=== PATIENT | male | born 1950 | race Caucasian/White ===

== ENCOUNTER 2018-11-24 19:32 | Inpatient (IN) | payer MEDICAID ==
[~2018-11-24] VITALS: Ht 167.6 cm; Wt 71.2 kg
[2018-11-24] MEDS ORDERED: TENORMIN100 MG ORAL (19:56)
[2018-11-24] MEDS ORDERED: MONTELUKAST SOD10 MG ORAL (19:56)
[2018-11-24] MEDS ORDERED: RISPERIDONE0.5 MG PO (19:56)
[2018-11-24] MEDS ORDERED: DOCUSATE SODIU100 M2 ORAL (19:56)
[2018-11-24] MEDS ORDERED: LACTULOSE20 GM/301 ORAL (19:56)
[2018-11-24] MEDS ORDERED: ASPIRIN-LOW81 MG ORAL (19:56)
[2018-11-24] MEDS ORDERED: MILK OF MA2400 MG/10 ORAL (19:56)
[2018-11-24] MEDS ORDERED: NEURONTIN300 MG ORAL (19:56)
[2018-11-24] MEDS ORDERED: OYSTER SHELL 51 EAC2 PO (19:56)
[2018-11-24] MEDS ORDERED: FLOMAX0.4 MG ORAL (19:56)
[2018-11-24] MEDS ORDERED: ZYPREXA7.5 MG ORAL (19:56)
[2018-11-24] MEDS ORDERED: PEPCID AC20 M2 PO (19:56)
[2018-11-24] MEDS ORDERED: ATIVAN4 MG/1 ML IJ (19:56)
[2018-11-24] MEDS ORDERED: REMERON15 M1 ORAL (19:56)
--- NOTE | 2018-11-24 20:00 | NUR ---
ED Nurse Note: RECIEVED PT BIBA FROM SNF WITH C/O ANORAL LABS, PT HAD LABS DONE LAST WEEK AND HAS ELEVATED POTASSIUM LEVEL, PT IS ASYMPTOMATIC, AWAKE, ALERT AND ORIENTED, DENEIS PAIN, IS CALM AND COOPERTIVE, IMEDIATELY PLACED ON CARDIAC MONITORING, IV LINE AND LABS DRAWN, WILL RESUME CARE ORDERED AND CLOSELY MONITOR.
[2018-11-24 20:02] LABS: BASOPHILS % (AUTO) 0.9 % (0.0-2.0); EOSINOPHILS % (AUTO) 1.2 % (0.0-3.0); HEMATOCRIT 37.3 % (42.0-52.0); HEMOGLOBIN 13.2 G/DL (14.2-18.0); LYMPHOCYTES % (AUTO) 12.8 % (20.0-45.0); MEAN CORPUSCULAR VOLUME 84 FL (80-99); MONOCYTES % (AUTO) 8.1 % (1.0-10.0); NEUTROPHILS % (AUTO) 77.1 % (45.0-75.0); PLATELET COUNT 265 K/UL (150-450); RED BLOOD COUNT 4.46 M/UL (4.70-6.10); RED CELL DISTRIBUTION WIDTH 12.2 % (11.6-14.8); WHITE BLOOD COUNT 11.6 K/UL (4.8-10.8)
[2018-11-24 20:15] VITALS: BP 139/76
[2018-11-24 20:21] LABS: ANION GAP 9 mmol/L (5-15); BLOOD UREA NITROGEN 23 mg/dL (7-18); CALCIUM 9.2 MG/DL (8.5-10.1); CARBON DIOXIDE 28 MMOL/L (21-32); CHLORIDE 102 MMOL/L (98-107); CREATININE 1.8 MG/DL (0.55-1.30); POTASSIUM 4.5 MMOL/L (3.5-5.1); SODIUM 139 MMOL/L (136-145)
[2018-11-24 20:26] LABS: APPEARANCE,URINE SLIGHTLY CLOUDY; BILIRUBIN, URINE NEGATIVE (NEGATIVE); COLOR,URINE PALE YELLOW; GLUCOSE, URINE (UA) NEGATIVE (NEGATIVE); KETONES,URINE NEGATIVE (NEGATIVE); LEUKOCYTE ESTERASE ,URINE 3+ (NEGATIVE); NITRITE,URINE NEGATIVE (NEGATIVE); PH,URINE 6.5 (4.5-8.0); PROTEIN,URINE NEGATIVE (NEGATIVE); UROBILINOGEN,URINE NORMAL MG/DL (0.0-1.0)
[2018-11-24 20:34] LABS: ALANINE AMINOTRANSFERASE 14 U/L (12-78); ALBUMIN 3.6 G/DL (3.4-5.0); ALKALINE PHOSPHATASE 59 U/L (46-116); ASPARTATE AMINO TRANSFERASE 16 U/L (15-37); BILIRUBIN,TOTAL 0.4 MG/DL (0.2-1.0); CKMB 1.7 NG/ML (0.0-3.6); CREATINE KINASE 68 U/L (26-308)
[2018-11-24 21:30] VITALS: BP 126/73
--- NOTE | 2018-11-24 22:00 | NUR ---
ED Nurse Note: PT CONTINUES TO REST IN BED, AWAKE AND ALERT, DENIES PAIN OR ANY DISTRESS, IV SITE PATENT, ORDERED ANTIBIOTICS INFUSING, NO S/S OF ADVRSE REACTION, WILL CONTINUE TO MONITOR AND PREPARE FOR ADMISSION.
--- NOTE | 2018-11-24 22:03 | Emergency Room Report ---
History of Present Illness General Chief Complaint: Abnormal Labs Source: Patient, Medical Record Present Illness HPI 68-year-old male presents ED for evaluation. Sent in from longterm facility for abnormal labs. Lab work shows high sodium and high potassium. Patient states he feels okay. Denies any dizziness. Denies chest pain or shortness of breath. Denies fevers or chills. No other aggravating relieving factors. Denies any other associated symptoms Allergies: Coded Allergies: SULFA (SULFONAMIDE ANTIBIOTICS) (Verified Allergy, Unknown, 11/24/18) Patient History Past Medical History: HTN Past Surgical History: none Pertinent Family History: none Social History: Denies: smoking, alcohol use, drug use Immunizations: UTD Reviewed Nursing Documentation: PMH: Agreed; PSxH: Agreed Nursing Documentation-PMH Hx Hypertension: Yes - HTN Hx Diabetes: No Review of Systems All Other Systems: negative except mentioned in HPI Physical Exam Vital Signs Date Time Temp Pulse Resp B/P (MAP) Pulse Ox O2 Delivery O2 Flow Rate FiO2 11/24/18 19:18 98.4 60 18 129/80 (96) 98 Room Air Sp02 EP Interpretation: reviewed, normal General Appearance: no apparent distress, alert, GCS 15, non-toxic Head: normocephalic, atraumatic Eyes: bilateral eye normal inspection, bilateral eye PERRL ENT: hearing grossly normal, normal pharynx, no angioedema, normal voice Neck: full range of motion, supple/symm/no masses Respiratory: chest non-tender, lungs clear, normal breath sounds, speaking full sentences Cardiovascular #1: regular rate, rhythm, no edema Cardiovascular #2: 2+ carotid (R), 2+ carotid (L), 2+ radial (R), 2+ radial (L) , 2+ dorsalis pedis (R), 2+ dorsalis pedis (L) Gastrointestinal: normal bowel sounds, non tender, soft, non-distended, no guarding, no rebound Rectal: deferred Genitourinary: normal inspection, no CVA tenderness Musculoskeletal: back normal, gait/station normal, normal range of motion, non- tender Neurologic: alert, oriented x3, responsive, motor strength/tone normal, sensory intact, speech normal Psychiatric: judgement/insight normal, memory normal, mood/affect normal, no suicidal/homicidal ideation Reflexes: 3+ bicep (R), 3+ bicep (L), 3+ tricep (R), 3+ tricep (L), 3+ knee (R) , 3+ knee (L) Skin: normal color, no rash, warm/dry, well hydrated Lymphatic: no adenopathy Medical Decision Making Diagnostic Impression: Primary Impression: Renal insufficiency Additional Impression: UTI (urinary tract infection) Qualified Codes: N39.0 - Urinary tract infection, site not specified ER Course Hospital Course 68 yo M presents to ED with recent elevated potassium Differential diagnoses include: VA/unstable angina, V. tach, bradycardia, hyperkalemia, fluid overload Clinical course Patient placed on stretcher. on air sampling and monitoring. After initial history and physical I ordered labs, EKG labs reviewed- no leukocytosis, hb/hct stable, Na and K ok. BUN/Cr elevated. UA + bacteria EKG - NSR, no acute ischemic changes interpreted by me CXR - no acute process given IV fluids. Given antibiotics. Case discussed with Dr. Bailey and he agreed to accept the patient to his service for further care and support I. I feel this is a highly complex case requiring extensive working including EKG/Rhythm strip, Xray/CT/US, Blood/urine lab work, repeat exams while in ED, and administration of strong opiates/narcotics for pain control, admission to hospital or close patient follow up. Diagnosis - renal insufficency, UTI admitted to floor in serious condition Labs Test 11/24/18 19:50 11/24/18 20:10 White Blood Count 11.6 K/UL (4.8-10.8) Red Blood Count 4.46 M/UL (4.70-6.10) Hemoglobin 13.2 G/DL (14.2-18.0) Hematocrit 37.3 % (42.0-52.0) Mean Corpuscular Volume 84 FL (80-99) Mean Corpuscular Hemoglobin 29.7 PG (27.0-31.0) Mean Corpuscular Hemoglobin Concent 35.5 G/DL (32.0-36.0) Red Cell Distribution Width 12.2 % (11.6-14.8) Platelet Count 265 K/UL (150-450) Mean Platelet Volume 6.8 FL (6.5-10.1) Neutrophils (%) (Auto) 77.1 % (45.0-75.0) Lymphocytes (%) (Auto) 12.8 % (20.0-45.0) Monocytes (%) (Auto) 8.1 % (1.0-10.0) Eosinophils (%) (Auto) 1.2 % (0.0-3.0) Basophils (%) (Auto) 0.9 % (0.0-2.0) Sodium Level 139 MMOL/L (136-145) Potassium Level 4.5 MMOL/L (3.5-5.1) Chloride Level 102 MMOL/L (98-107) Carbon Dioxide Level 28 MMOL/L (21-32) Anion Gap 9 mmol/L (5-15) Blood Urea Nitrogen 23 mg/dL (7-18) Creatinine 1.8 MG/DL (0.55-1.30) Estimat Glomerular Filtration Rate 37.8 mL/min (>60) Glucose Level 83 MG/DL (74-106) Calcium Level 9.2 MG/DL (8.5-10.1) Total Bilirubin 0.4 MG/DL (0.2-1.0) Aspartate Amino Transf (AST/SGOT) 16 U/L (15-37) Alanine Aminotransferase (ALT/SGPT) 14 U/L (12-78) Alkaline Phosphatase 59 U/L (46-116) Total Creatine Kinase 68 U/L (26-308) Creatine Kinase MB 1.7 NG/ML (0.0-3.6) Creatine Kinase MB Relative Index 2.5 Troponin I 0.000 ng/mL (0.000-0.056) Total Protein 7.3 G/DL (6.4-8.2) Albumin 3.6 G/DL (3.4-5.0) Globulin 3.7 g/dL Albumin/Globulin Ratio 1.0 (1.0-2.7) Urine Color Pale yellow Urine Appearance Slightly cloudy Urine pH 6.5 (4.5-8.0) Urine Specific [place] 1.010 (1.005-1.035) Urine Protein Negative (NEGATIVE) Urine Glucose (UA) Negative (NEGATIVE) Urine Ketones Negative (NEGATIVE) Urine Blood 4+ (NEGATIVE) Urine Nitrite Negative (NEGATIVE) Urine Bilirubin Negative (NEGATIVE) Urine Urobilinogen Normal MG/DL (0.0-1.0) Urine Leukocyte Esterase 3+ (NEGATIVE) Urine RBC 5-10 /HPF (0 - 0) Urine WBC Tntc /HPF (0 - 0) Urine Squamous Epithelial Cells None /LPF (NONE/OCC) Urine Bacteria Moderate /HPF (NONE) EKG Diagnostic Results Rate: normal Rhythm: NSR ST Segments: no acute changes ASA given to the pt in ED: No Rhythm Strip Diag. Results EP Interpretation: yes Rhythm: NSR, no PVC's, no ectopy Chest X-Ray Diagnostic Results Chest X-Ray Diagnostic Results : Chest X-Ray Ordered: Yes # of Views/Limited/Complete: 1 View Indication: Other EP Interpretation: Yes Interpretation: no consolidation, no effusion, no pneumothorax, no acute cardiopulmonary disease Impression: No acute disease Electronically Signed by: Electronically signed by Hal Mas MD Last Vital Signs Date Time Temp Pulse Resp B/P (MAP) Pulse Ox O2 Delivery O2 Flow Rate FiO2 11/24/18 21:30 98.4 63 18 126/73 97 Room Air Status: improved Disposition: ADMITTED INPATIENT Condition: Serious Referrals: Ashley Bailey MD (PCP) Hal Mas MD Nov 24, 2018 22:03
[2018-11-24] MEDS ORDERED: cefTRIAXone 1 GM in NS 55 ML IVPB ONE (22:15)
--- NOTE | 2018-11-24 22:45 | NUR ---
ED Nurse Note: PT HAS ROOM FOR ADMISSION AND BEING TAKEN TO FLOOR BED VIA GURNEY WITH [facility], PT IS AWAKE AND ALERT, IV SITE PATENT, COMPLETED IV FLUIDS AND ANTIBIOTICS, TOLERATED WELL, BELONGINGS LIST COMPLETED, NAD NOTED DURING PT TRASNPORT, REPORT CALLED TO JOSSY OCAMPO ON UNIT.
[2018-11-25] VITALS: BP 116/73
[2018-11-25 04:00] VITALS: BP 123/71
--- NOTE | 2018-11-25 05:37 | NUR ---
NURSE NOTES: Admitted a 68 year old male, alert and oriented to name. No complaints of pain at this time. Incontinent. Instructed the use of call light. Call light within reach. Bed in lowest position, lock engaged and alarm on. Will continue to monitor. Spoke with Dr. Bailey for admission orders.
--- NOTE | 2018-11-25 07:31 | NUR ---
HAND-OFF: Report given to JOSSY Chavez.
[2018-11-25] MEDS ORDERED: Lactulose 20gm/30ml UDC ORAL PRN (09:00)
[2018-11-25] MEDS: Montelukast 10mg tablet ORAL SCH (09:00)
[2018-11-25] MEDS ORDERED: Milk of Magnesia 30ml Ud ORAL SCH (09:00)
[2018-11-25] MEDS: Calcium Carbonate 500mg w/Vit D 200iu tab ORAL SCH (09:00)
[2018-11-25] MEDS: Docusate 100mg cap ORAL SCH ×2 (09:00→18:00)
[2018-11-25] MEDS ORDERED: Lactulose 20gm/30ml UDC ORAL SCH (09:00)
[2018-11-25] MEDS ORDERED: Docusate 100mg cap ORAL SCH (09:00)
[2018-11-25] MEDS: Aspirin EC 81mg tab ORAL SCH (09:00)
[2018-11-25] MEDS ORDERED: Milk of Magnesia 30ml Ud ORAL PRN (09:00)
--- NOTE | 2018-11-25 09:10 | NUR ---
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 UTI VS: BP 199/76, P 60, T 98.4, RR 18, SpO2 98 WBC 11.6, RBC 4.46, H&H 13.2/37.3, BUN 23, CR 1.8, UR Blood 4, UR Bacteria MODERATE IS:NS x1L IV CEFTRIAXONE 55ml IVPB ADMITTED TO MED/SURG DCP: RETURN TO [facility]
--- NOTE | 2018-11-25 09:49 | Diagnostic Imaging Report ---
Indication: Chest pain Technique: One view of the chest Comparison: none Findings: There is some atelectasis at the left lung base. The right costophrenic angle is cut off the exam. Lungs and pleural spaces otherwise clear. The heart size is normal. Impression: Left basilar atelectasis No acute process otherwise
[2018-11-25] MEDS: LORazepam Inj 2mg/ml 1ml IM PRN ×2 (12:01→20:30)
--- NOTE | 2018-11-25 12:15 | NUR ---
CHARGE NURSE NOTES: Pt is very agitated and fighting with the staff. Pulled Ativan but when administered was not able to scan Pt's ID. Made a multiple attempts but unsuccessful. Ativan administered as ordered and witnessed by the primary RN Kathy Medina
--- NOTE | 2018-11-25 14:27 | Consultation ---
Consult Note Consult Note asked to evaluate at the request of Dr Marques for renal failure upon questioning patient appears to have no knowledge of previous kidney or urinary problems states that is in the hospital for 'LOW Potassium" !! ER 68-year-old male presents ED for evaluation. [facility] for [facility]. Lab work shows high sodium and high potassium. Patient states he feels okay. Denies any dizziness. Denies chest pain or shortness of breath. Denies fevers or chills. No other aggravating relieving factors. Denies any other associated symptoms SULFA (SULFONAMIDE ANTIBIOTICS) (Verified Allergy, Unknown, 11/24/18) Past Medical History: HTN Hx Hypertension: Yes - HTN Hx Diabetes: No examined data reviewed Assessment/Plan Renal Failure ? PreRenal on top of Renal UTI psych disease normal BP Will give one dose PO Levaquin- RN states that he refuses IV Po Hydration Urine studies Monitor renal parameters per orders Aleksandr Whitt MD Nov 25, 2018 14:27
[2018-11-25] MEDS ORDERED: Levofloxacin 500mg tab ORAL SCH (14:30)
--- NOTE | 2018-11-25 15:22 | NUR ---
*-* INSURANCE *-* ALL CLINICALS AND REVIEWS HAVE BEEN FAXED TO: [employer] F: [phone] FAX CLINICALS
--- NOTE | 2018-11-25 16:37 | NUR ---
NURSE NOTES: Patient is refusing vitals and all po medications. Attempting to educate and redirect patient but patient continues to refuse care. Patient is also refusing any food or beverages. Unable to encourage patient to eat.
--- NOTE | 2018-11-25 19:25 | NUR ---
HAND-OFF: Report given to JOSSY Bellamy.
--- NOTE | 2018-11-25 19:30 | NUR ---
NURSE NOTES: RECEIVED PATIENT STANDING IN HALLWAY, ORIENTED TO SELF, CONFUSED, RESTLESS, WANDERER, ASSISTED PATIENT TO ROOM ON MULTIPLE OCCASIONS. DENIES PAIN. NO SIGNS AND SYMPTOMS OF ACUTE CARDIO RESPIRATORY DISTRESS/SHORTNESS OF BREATH, NO EDEMA NOTED. PO FLUIDS ENCOURAGE, PATIENT REFUSE. CONTINENT OF BOWEL/BLADDER, BATHROOM PRIVILEGES WITH SUPERVISION. ABDOMEN ROUND, SOFT, NON TENDER, UNABLE TO ASSESS BOWEL SOUNDS SECONDARY TO PATIENT NON COMPLIANCE, GUARDED. FREQUENT ROUNDING FOR SAFETY/NEEDS. NAD.
[2018-11-25 21:00] VITALS: BP 134/76
[2018-11-25] MEDS: Tamsulosin 0.4mg cap ORAL SCH (21:00)
--- NOTE | 2018-11-25 23:30 | History and Physical Report ---
DATE OF ADMISSION: 11/24/2018 HISTORY OF PRESENT ILLNESS: He is a very poor historian with advanced dementia, with psychosis. The patient for azotemia, acute renal failure as well as UTI. The patient cannot rely upon his history. Denies nausea, vomiting, or diarrhea. No fever or chills. No shortness of breath. Denies cough. PAST MEDICAL HISTORY: Dementia, mood disorder, psychosis, BPH, constipation, GERD, hypertension. ALLERGIES: Sulfa. MEDICATIONS: Aspirin, atenolol, docusate, famotidine, gabapentin, mirtazapine, Zyprexa, and Flomax. FAMILY HISTORY: Noncontributory. SOCIAL HISTORY: Denies smoking, alcohol, or illicit drugs. Comes from a alf. REVIEW OF SYSTEMS: HEENT: Denies headaches. RESPIRATORY: Denies shortness of breath. Denies cough. CARDIOVASCULAR: Denies chest pain. GASTROINTESTINAL: Denies vomiting or diarrhea. EXTREMITIES: Denies pain. CENTRAL NERVOUS SYSTEM: No change in vision or speech pattern, however, is a poor historian. PHYSICAL EXAMINATION: VITAL SIGNS: Temperature 98.2, pulse is 60, blood pressure 123/71. HEENT: PERRLA. NECK: Supple. No lymphadenopathy. CHEST: Clear to auscultation. CARDIOVASCULAR: Regular rate and rhythm. GASTROINTESTINAL: Soft. Positive bowel sounds. No organomegaly. EXTREMITIES: No edema. Reflexes on both sides. Able to move extremities. NEUROLOGIC: . LABORATORY DATA: WBC of 11.6, hemoglobin 13.2, and platelets of 265,000. Sodium 139, potassium 4.5, . BUN of 23, creatinine of 1.8, and glucose of 83. ASSESSMENT AND PLAN: Azotemia and UTI. I have asked Dr. Whitt, Dr. Julio Turner to see the patient for the above-mentioned diagnosis and treatment. Ashley Bailey M.D. DR: RAISA JOB#: [id number] CC:
--- NOTE | 2018-11-26 06:36 | NUR ---
NURSE NOTES: REFUSED BLOOD DRAW THIS MORNING, BECAME VERY ANGRY WHEN ASKED A SECOND TIME, ALSO NON COMPLIANT WITH MEDICATION REGIMEN, CONTINUE TO REFUSE. SLEPT WELL. NAD.
--- NOTE | 2018-11-26 07:30 | NUR ---
NURSE NOTES: Pt is confused and orient x1. pt is RA, No SOB or acute respiratory distress noted. Pt has no iv access MD is aware. all needs attended, bed is locked and is in the lowest position. call light within easy reach. will continue to monitor.
--- NOTE | 2018-11-26 07:47 | NUR ---
HAND-OFF: Report given to VICKIESOON.
[2018-11-26] MEDS: Aspirin EC 81mg tab ORAL SCH (09:00)
[2018-11-26] MEDS: Montelukast 10mg tablet ORAL SCH (09:00)
[2018-11-26] MEDS: Calcium Carbonate 500mg w/Vit D 200iu tab ORAL SCH (09:00)
[2018-11-26] MEDS: Docusate 100mg cap ORAL SCH ×2 (09:00→18:00)
--- NOTE | 2018-11-26 11:57 | Nephrology Progress Note ---
Assessment/Plan Problem List: (1) Renal insufficiency (2) UTI (urinary tract infection) (3) Psychiatric diagnosis Assessment Renal Failure ? PreRenal on top of Renal UTI psych disease normal BP Plan Will give one dose PO Levaquin- RN states that he refuses IV refused blood work today Po Hydration Urine studies Monitor renal parameters per orders Subjective ROS Limited/Unobtainable: No Objective Objective Last 24 Hour Vital Signs Date Time Temp Pulse Resp B/P (MAP) Pulse Ox O2 Delivery O2 Flow Rate FiO2 11/26/18 09:00 Room Air 11/25/18 21:00 98.7 69 18 134/76 (95) 96 11/25/18 21:00 Room Air Intake and Output 11/25/18 11/26/18 19:00 07:00 Intake Total 720 ml 240 ml Balance 720 ml 240 ml Intake Oral 720 ml 240 ml # Voids 2 2 Height (Feet): 5 Height (Inches): 6.00 Weight (Pounds): 157 General Appearance: no apparent distress Cardiovascular: normal rate Respiratory/Chest: lungs clear Abdomen: distended Aleksandr Whitt MD Nov 26, 2018 11:57
[2018-11-26] MEDS: LORazepam Inj 2mg/ml 1ml IM PRN (12:17)
--- NOTE | 2018-11-26 19:19 | NUR ---
HAND-OFF: Report given to JOSSY SHELTON.
[2018-11-26] MEDS: Tamsulosin 0.4mg cap ORAL SCH (21:00)
--- NOTE | 2018-11-26 21:32 | General Progress Note ---
Assessment/Plan Problem List: (1) Renal insufficiency ICD Codes: N28.9 - Disorder of kidney and ureter, unspecified SNOMED: 043749769, 608989380 (2) UTI (urinary tract infection) ICD Codes: N39.0 - Urinary tract infection, site not specified SNOMED: 21774863, 542811720 Qualifiers: Qualified Codes: N39.0 - Urinary tract infection, site not specified (3) Psychiatric diagnosis ICD Codes: F99 - Mental disorder, not otherwise specified SNOMED: 50884115 Status: progressing Assessment/Plan: afebrile nac azotemia psych patient uti.abx per ID Subjective ROS Limited/Unobtainable: Yes Allergies: Coded Allergies: SULFA (SULFONAMIDE ANTIBIOTICS) (Verified Allergy, Unknown, 11/24/18) Objective Last 24 Hour Vital Signs Date Time Temp Pulse Resp B/P (MAP) Pulse Ox O2 Delivery O2 Flow Rate FiO2 11/26/18 21:00 Room Air 11/26/18 09:00 Room Air Intake and Output 11/25/18 11/26/18 18:59 06:59 Intake Total 720 ml 240 ml Balance 720 ml 240 ml Intake Oral 720 ml 240 ml # Voids 2 2 Height (Feet): 5 Height (Inches): 6.00 Weight (Pounds): 157 Cardiovascular: normal rate Respiratory/Chest: lungs clear Abdomen: soft Ashley Bailey MD Nov 26, 2018 21:32
--- NOTE | 2018-11-27 06:41 | NUR ---
NURSE NOTES: REMAIN NON COMPLIANT WITH PLAN OF CARE, REFUSED VITALS, POOR PO INTAKE. NO S/SX OF DISTRESS NOTED.
--- NOTE | 2018-11-27 08:17 | NUR ---
NURSE NOTES: Patient is alert to name,respirations unlabored.Patient breakfast at bedside,offer patient his breakfast but patient refusing at this time.Will offer later.Bed alarm is on,call light within reach.Sitter watching patient.
[2018-11-27] MEDS: Aspirin EC 81mg tab ORAL SCH (09:00)
[2018-11-27] MEDS: Montelukast 10mg tablet ORAL SCH (09:00)
[2018-11-27] MEDS: Calcium Carbonate 500mg w/Vit D 200iu tab ORAL SCH (09:00)
[2018-11-27] MEDS: Docusate 100mg cap ORAL SCH ×2 (09:00→18:00)
--- NOTE | 2018-11-27 13:26 | Nephrology Progress Note ---
Assessment/Plan Problem List: (1) Renal insufficiency (2) UTI (urinary tract infection) (3) Psychiatric diagnosis Assessment Renal Failure ? PreRenal on top of Renal UTI psych disease normal BP Plan security is at his door - patient un cooporative Will give one dose PO Levaquin- RN states that he refuses IV refused blood work today PO Hydration Urine studies Monitor renal parameters per orders need psychiatric intervention Subjective ROS Limited/Unobtainable: Yes Objective Objective Last 24 Hour Vital Signs Date Time Temp Pulse Resp B/P (MAP) Pulse Ox O2 Delivery O2 Flow Rate FiO2 11/27/18 10:17 Room Air 11/26/18 21:00 Room Air Intake and Output 11/26/18 11/27/18 19:00 07:00 Intake Total 880 ml Balance 880 ml Intake Oral 880 ml # Voids 6 3 # Bowel Movements 3 Laboratory Tests 11/27/18 06:30: Urine Random Sodium 89 Height (Feet): 5 Height (Inches): 6.00 Weight (Pounds): 157 General Appearance: other - restless Objective refuses exam Aleksandr Whitt MD Nov 27, 2018 13:26
--- NOTE | 2018-11-27 13:52 | Cardiology Report ---
APPROVED REPORT EKG Measurement Heart [id number] ID [id number] Normal sinus rhythm Right bundle branch block Abnormal ECG
--- NOTE | 2018-11-27 18:17 | NUR ---
NURSE NOTES: Patient in room ,alert to name,but patient will not talk,still noncompliant,will not take medication as ordered..dinner at bedside,patient not eating,will drink water.Sitter at room.
--- NOTE | 2018-11-27 19:20 | NUR ---
CASE MANAGEMENT: REVIEW 11/26/2018 SI:UTI. RENAL INSUFFICIENCY. PATIENT REFUSED VS NO LABS TODAY IS:REMERON PO QHS ZYPREXA PO BID PEPCID QAM ASA PO QD TENORMIN PO QD SINGULAIR PO QD RISPERDAL PO QD FLOMAX PO QHS GABAPENTIN PO TID MED/SURG STATUS PLAN OF CARE: SITTER 11/27/2018 SI:UTI. RENAL INSUFFICIENCY. PATIENT REFUSED VS NO LABS TODAY IS:REMERON PO QHS ZYPREXA PO BID PEPCID QAM ASA PO QD TENORMIN PO QD SINGULAIR PO QD RISPERDAL PO QD FLOMAX PO QHS GABAPENTIN PO TID MED/SURG STATUS PLAN OF CARE: SITTER
--- NOTE | 2018-11-27 19:37 | NUR ---
HAND-OFF: Report given to Elizabeth.
--- NOTE | 2018-11-27 19:38 | NUR ---
NURSE NOTES: Patient in room ,alert to name,but patient will not talk,nonverbal, blank stare, still noncompliant,will not take medication as ordered...Sitter at room.
[2018-11-27] MEDS: Tamsulosin 0.4mg cap ORAL SCH (20:46)
--- NOTE | 2018-11-27 22:03 | General Progress Note ---
Assessment/Plan Problem List: (1) Renal insufficiency ICD Codes: N28.9 - Disorder of kidney and ureter, unspecified SNOMED: 519902671, 253142262 (2) UTI (urinary tract infection) ICD Codes: N39.0 - Urinary tract infection, site not specified SNOMED: 01731471, 272997318 Qualifiers: Qualified Codes: N39.0 - Urinary tract infection, site not specified (3) Psychiatric diagnosis ICD Codes: F99 - Mental disorder, not otherwise specified SNOMED: 04718064 Status: progressing Assessment/Plan: lytes wnl azotemia improved psych patient uti.abx per ID Subjective ROS Limited/Unobtainable: Yes Allergies: Coded Allergies: SULFA (SULFONAMIDE ANTIBIOTICS) (Verified Allergy, Unknown, 11/24/18) Objective Last 24 Hour Vital Signs Date Time Temp Pulse Resp B/P (MAP) Pulse Ox O2 Delivery O2 Flow Rate FiO2 11/27/18 10:17 Room Air Intake and Output 11/26/18 11/27/18 19:00 07:00 Intake Total 880 ml Balance 880 ml Intake Oral 880 ml # Voids 6 3 # Bowel Movements 3 Laboratory Tests 11/27/18 06:30: Urine Random Sodium 89 Height (Feet): 5 Height (Inches): 6.00 Weight (Pounds): 157 General Appearance: confused Cardiovascular: normal rate Respiratory/Chest: lungs clear Abdomen: soft Ashley Bailey MD Nov 27, 2018 22:03
--- NOTE | 2018-11-28 07:17 | NUR ---
HAND-OFF: Report given to JOSSY Stevens.
--- NOTE | 2018-11-28 07:44 | NUR ---
NURSE NOTES: Patient received, awake but confused. Sitter by the bedside. No SCD's or IV on as endorsed. Safety precautions maintained. Bed locked in lowest position. Call light placed within reach, will continue to monitor.
[2018-11-28] MEDS: Calcium Carbonate 500mg w/Vit D 200iu tab ORAL SCH (09:00)
[2018-11-28] MEDS: Aspirin EC 81mg tab ORAL SCH (09:00)
[2018-11-28] MEDS: Montelukast 10mg tablet ORAL SCH (09:00)
[2018-11-28] MEDS: Docusate 100mg cap ORAL SCH (09:00)
--- NOTE | 2018-11-28 11:11 | NUR ---
DISCHARGE PLANNED [facility] ROOM 2C SENIOR CARE T [phone] FOR NURSE TO NURSE REPORT [facility] WILL FIREBREAK CUTTER AT 1200
--- NOTE | 2018-11-28 11:57 | Nephrology Progress Note ---
Assessment/Plan Problem List: (1) Renal insufficiency (2) UTI (urinary tract infection) (3) Psychiatric diagnosis Assessment Renal Failure ? PreRenal on top of Renal UTI psych disease normal BP Plan patient un cooporative Will give one dose PO Levaquin- RN states that he refuses IV refused blood work PO Hydration Urine studies Monitor renal parameters per orders need psychiatric intervention Subjective ROS Limited/Unobtainable: No Objective Objective Last 24 Hour Vital Signs Date Time Temp Pulse Resp B/P (MAP) Pulse Ox O2 Delivery O2 Flow Rate FiO2 11/28/18 09:00 Room Air 11/27/18 21:00 Room Air Intake and Output 11/27/18 11/28/18 19:00 07:00 Intake Total 740 ml 500 ml Balance 740 ml 500 ml Intake Oral 740 ml 500 ml # Voids 3 2 # Bowel Movements 4 Height (Feet): 5 Height (Inches): 6.00 Weight (Pounds): 157 General Appearance: no apparent distress Objective refuses exam Aleksandr Whitt MD Nov 28, 2018 11:57
--- NOTE | 2018-11-28 12:02 | NUR ---
NURSE NOTES: Patient discharged back to [facility], accompanied by ambulance personnel. No belongings. No IV site. Discharge packet provided to ambulance personnel. Nurse to nurse report given to aLlit maravilla [place].
--- NOTE | 2018-11-28 13:57 | NUR ---
*-* INSURANCE *-* ALL CLINICALS AND REVIEWS HAVE BEEN FAXED TO: [employer] F: [phone] FAX CLINICALS
--- NOTE | 2018-11-28 14:21 | Discharge Summary ---
Discharge Summary Discharge Summary _ DATE OF ADMISSION: 11/24/2018 DATE OF DISCHARGE: 01/28/2019 DISCHARGED BY: Dr Bailey REASON FOR ADMISSION: 68 years old male, resident of sn[facility] facility, with past medical history of hypertension, GERD, encephalopathy, chronic kidney disease, BPH, schizophrenia , presented from the [facility] facility for evaluation due to abnormal labs. Laboratory work-up from the facility showed high sodium and high potassium. Patient denied chest pain or shortness of breath. He denied fever and chills. Upon evaluation vital signs were stable. Laboratory work-up revealed mild leukocytosis with WBC 11.6, hemoglobin 13. 2, hematocrit 37.3. Stable sodium 139 and potassium 4.5. BUN 23, creatinine 1.8. Glucose 83. Stable LFT. Troponin negative. EKG showed sinus rhythm, no acute ischemic changes. Albumin 3.6. Urinalysis revealed evidence of UTI . Chest x-ray demonstrated no acute cardiopulmonary pathology; left base atelectasis noted. Patient subsequently was admitted for further management. CONSULTANTS: body line finisher Dr. Whitt HOSPITAL COURSE: Patient admitted to medical surgical floor. Heel Layer followed. Patient with underlying psychiatric disorder and received IV fluids and IV access . Patient started on oral Levaquin for UTI. Oral hydration was encouraged. Nephrotoxins were avoided. Patient declined further labs. Urine culture revealed Proteus mirabilis. Oral antibiotic completed for 3 days. Initial mild leukocytosis resolved. SNF medication continued, including antiplatelet therapy with aspirin. Blood pressure was managed with beta-latrice and remained stable. Bowel regimen instituted. GI prophylaxis provided. Flomax continued. Patient was continued on Risperdal and Zyprexa. Patient will benefit from psychiatric evaluation which could be done as outpatient. Patient was subsequently transferred to the nursing facility as [facility] for further management. FINAL DIAGNOSES: Proteus UTI Renal failure Psychiatric disorder DISCHARGE MEDICATIONS: See Medication Reconciliation list. DISCHARGE INSTRUCTIONS: Patient was discharged to nursing facility under [facility] care. Follow up with medical doctor at the facility. I have been assigned to dictate discharge summary for this account. I was not involved in the patient's management. Fatimah Melvin NP Nov 28, 2018 14:21
--- NOTE | 2018-11-29 11:19 | NUR ---
*-* INSURANCE *-* DISCHARGE SUMMARY HAVE BEEN FAXED TO: [facility] F: [phone] FAX CLINICALS
== END 2018-11-28 12:26 | DRG 463 ==
LOC: EDBD 19:32 → EMR 19:54 → 4E 21:45 → EDBEDREQ 22:00 → 4E 11-25 13:55
DX: N39.0 Urinary tract infection, site not specified (principal); N17.9 Acute kidney failure, unspecified; F20.9 Schizophrenia, unspecified; B96.4 Proteus (mirabilis) (morganii) as the cause of diseases classified elsewhere; I12.9 Hypertensive chronic kidney disease with stage 1 through stage 4 chronic kidney disease, or unspecified chronic kidney disease; F03.90 Unspecified dementia, unspecified severity, without behavioral disturbance, psychotic disturbance, mood disturbance, and anxiety; N40.0 Benign prostatic hyperplasia without lower urinary tract symptoms; K21.9 Gastro-esophageal reflux disease without esophagitis; Z88.2 Allergy status to sulfonamides; Z79.82 Long term (current) use of aspirin
CPT/HCPCS: 36415; 71045; 80053; 81003; 82550; 82553; 84300; 84484; 85025; 87081; 87086; 87181; 93005; 96361; 96365; 99285